=== PATIENT | male | born 1940 | race Caucasian/White ===

== ENCOUNTER 2016-08-24 16:06 | Inpatient (IN) | payer OTHER ==
[~2016-08-24] VITALS: Ht 165.1 cm; Wt 59.4 kg
[2016-08-24 16:10] VITALS: BP 146/95; PULSE 101; RESP 17; TEMP 97.9; O2SAT 97
--- NOTE | 2016-08-24 16:10 | NUR ---
Placed in room 04. Placed on property assessment monitor, blood pressure machine and pulse oximeter. To gown for exam. Side rails up. Report given to LEONEL Oleary.
--- NOTE | 2016-08-24 16:12 | NUR ---
On continous quality assurance monitor chassis
[2016-08-24] MEDS ORDERED: ASPIRIN 81 MG TAB.CHEW PO ONE (16:15)
--- NOTE | 2016-08-24 16:21 | NUR ---
Patient alert and oriented x4. States has had mid chest pain for 2 days, was sharp to begin but sharpness has lessened as of today, states does not radiate. Denies shortness of breath, nausea or vomiting. States pain even exists at rest. Denies dizziness/feeling faint at this time. No other complaints/injuries per patient or noted.
--- NOTE | 2016-08-24 16:22 | NUR ---
Dr. Wagner at bedside.
[2016-08-24 16:26] LABS: HEMATOCRIT 45.9 % (36-54); HEMOGLOBIN 15.8 g/dL (14.0-18.0); MEAN CORPUSCULAR HEMOGLOBIN 31 pg (27-31); MEAN CORPUSCULAR HGB CONC 34 % (32-36); MEAN CORPUSCULAR VOLUME 89 fL (79.0-98.0); PLATELET COUNT (AUTO) 218 K/uL (130-430); RED BLOOD CELL COUNT(AUTO) 5.15 MIL/uL (4.2-6.2); RED CELL DISTRIBUTION WIDTH 12.9 % (9.0-15.0); WHITE BLOOD COUNT (AUTO) 8.5 K/uL (4.8-10.8)
[2016-08-24 16:43] LABS: ANION GAP 7 (5-15); CHLORIDE 101 mmol/L (98-107); CREATININE 1.43 mg/dL (0.55-1.30); GLUCOSE 160 mg/dL (70-99); POTASSIUM 3.1 mmol/L (3.5-5.1); SODIUM SERUM 135 mmol/L (136-145); UREA NITROGEN, BLOOD 22 mg/dL (8-21)
[2016-08-24 16:47] LABS: INR 1.2 (0.80-1.20); PROTHROMBIN TIME 13.6 SECS (9.5-12.5)
[2016-08-24 16:50] LABS: ALANINE AMINOTRANSFERASE 42 U/L (12-78); ALBUMIN 3.6 g/dL (3.4-4.8); CREATINE KINASE, TOTAL 101 U/L (39-308); TOTAL BILIRUBIN 1.7 mg/dL (0.0-1.0)
[2016-08-24 17:00] LABS: ATYPICAL LYMPHOCYTES % 0 % (0-0); BAND % (MANUAL) 0 % (0-6); BASOPHILS % (MANUAL) 0 % (0-2); EOSINOPHILS % (MANUAL) 12 % (0-7); LYMPHOCYTES % (MANUAL) 20 % (20-46); MONOCYTES % (MANUAL) 5 % (0-11)
[2016-08-24] MEDS ORDERED: OMEG300C3 PO (17:01)
[2016-08-24] MEDS ORDERED: WARF3TAB PO (17:01)
[2016-08-24] MEDS ORDERED: CYAN100T PO (17:01)
[2016-08-24] MEDS ORDERED: VITA1CAP PO (17:01)
--- NOTE | 2016-08-24 17:01 | NUR ---
Medication reconciliation completed with information provided by - verbal list from patient. Any prior medication reconciliation on file was reviewed and corrected.
[2016-08-24 17:03] LABS: ASPARTATE AMINOTRANSFERASE 64 U/L (10-37)
--- NOTE | 2016-08-24 17:15 | NUR ---
No chest pain, pressure or radiating pain per patient.
--- NOTE | 2016-08-24 18:30 | NUR ---
No chest pain, pressure or radiating pain per patient.
--- NOTE | 2016-08-24 18:55 | NUR ---
Patient will be admitted to care of Dr Dickerson. Admitted to tele unit. Will go to admit room. Summary report printed. Report given to Nettie CASTANEDA at bedside.
--- NOTE | 2016-08-24 18:59 | NUR ---
ADMISSION NOTE Received patient from ER via jennyfer, received report from LEONEL Oleary. Patient admitted with diagnosis of ELEVATED TROPONIN. Patient oriented to hospital routine, call light, toileting and safety-patient verbalized understanding.
[2016-08-24] MEDS ORDERED: *LOVENOX 1MG/KG Q12H/PHARMACY XX ONE (19:00)
[2016-08-24] MEDS ORDERED: ONDANSETRON HCL 4 MG/2 ML VIAL IVP PRN (19:00)
[2016-08-24] MEDS ORDERED: ALBUTEROL SULFATE 0.083% 2.5 MG/3 ML VIAL.NEB INH PRN (19:00)
[2016-08-24] MEDS ORDERED: NITROGLYCERIN 0.4 MG TAB.SUBL SL ONE (19:00)
[2016-08-24 19:03] VITALS: BP 148/113; PULSE 83; RESP 20; TEMP 97.5; O2SAT 97
--- NOTE | 2016-08-24 19:20 | NUR ---
INITIAL NOTE PT. RECEIVED AAOX4, NO S/S OF SOB OR DISTRESS NOTED. VSS. IV ACCESS NOTED TO LEFT AV, SALINE LOCK. NO REDNESS OR SWELLING TO THE SITE. PT. ABLE TO AMBULATE WITH STEADY GAIT, REFUSES TO HAVE BED ALARM ON. ENCOURAGED TO CALL FOR ASSISTANCE. WILL DO FREQUENT ROUNDING TO ENSURE SAFETY. FAMILY AT THE BEDSIDE. PLAN OF CARE DISCUSSED, VERBALIZES UNDERSTANDING. WILL CONTINUE TO MONITOR FOR ANY CHANGES. SAFETY AND FALL PRECAUTIONS IN PLACE, CALL LIGHT IN REACH.
[2016-08-24] MEDS ORDERED: WARFARIN SODIUM 3 MG TABLET PO ONE (19:30)
[2016-08-24] MEDS: ENOXAPARIN SODIUM 60 MG/0.6 ML SYRINGE SUBCUT SCH (21:24)
--- NOTE | 2016-08-24 22:00 | NUR ---
ROUNDS PT. RESTING IN BED, NO S/S OF SOB OR DISTRESS. PT. DENIES PAIN AT THIS TIME. ENCOURAGED TO CALL FOR ASSISTANCE. VERBALIZES UNDERSTANDING. WILL CONTINUE TO MONITOR. SAFETY AND FALL PRECAUTIONS IN PLACE. CALL LIGHT IN REACH.
[2016-08-25] VITALS (8 sets, daily range): BP systolic 82–159; BP diastolic 18–90; PULSE 71–83; RESP 10–20; TEMP 82–97.7; O2SAT 94–100
--- NOTE | 2016-08-25 00:03 | NUR ---
ROUNDS PT. RESTING QUIETLY IN BED AT THIS TIME. NO S/S OF SOB OR DISTRESS. WILL CONTINUE TO MONITOR. CALL LIGHT IN REACH, BED IN LOWEST LOCKED POSITION.
--- NOTE | 2016-08-25 01:02 | NUR ---
PAGED: I PAGED DR. SALGADO @ [id number] I SPOKE WITH MARTHA LANGSTON I PAGED SECOND TIME @ 0121 I SPOKE WITH TOYA SALGADO CALLED BACK @ 0123 NUMBER I CALLED [phone]
[2016-08-25] MEDS ORDERED: WARFARIN SODIUM 2 MG TABLET PO ONE (01:15)
--- NOTE | 2016-08-25 01:24 | NUR ---
MD CALL DR. SALGADO CALLED AND NOTIFIED OF ELEVATED TROPONIN, NO ORDERS GIVEN.
[2016-08-25] MEDS: METOPROLOL TARTRATE 25 MG TABLET PO SCH ×3 (01:34→20:20)
--- NOTE | 2016-08-25 01:44 | NUR ---
CONSULT FOLLOW UP: I CALLED TO FOLLOW UP CONSULT WITH DR. CISNEROS I SPOKE WITH AYLIN CANNED FOOD RECONDITIONING INSPECTOR # 22 KATIE CONFIRMED THAT ER DID CALL
--- NOTE | 2016-08-25 02:10 | NUR ---
ROUNDS PT. RESTING IN BED WITH EYES CLOSED. CHEST RISE AND FALL NOTED. NO S/S OF SOB OR DISTRESS. WILL CONTINUE TO MONITOR FOR CHANGES. SAFETY AND FALL PRECAUTIONS IN PLACE. CALL LIGHT IN REACH.
--- NOTE | 2016-08-25 06:57 | NUR ---
CLOSING NOTE PT. RESTING IN BED. NO S/S OF SOB OR DISTRESS. ALL NECESSARY NEEDS WERE MET. SAFETY AND FALL PRECAUTIONS WERE MAINTAINED. WILL ENDORSE CARE TO AM NURSE. CALL LIGHT IN REACH.
[2016-08-25 07:10] LABS: BASOPHILS % (AUTO) 0.3 % (0.0-2.0); EOSINOPHILS # (AUTO) 1.2 K/uL (0.0-0.4); HEMATOCRIT 44.6 % (36-54); HEMOGLOBIN 15.1 g/dL (14.0-18.0); LYMPHOCYTES # (AUTO) 1.8 K/uL (1.0-5.5); LYMPHOCYTES % (AUTO) 21.5 % (20.5-51.5); MEAN CORPUSCULAR HEMOGLOBIN 31 pg (27-31); MEAN CORPUSCULAR HGB CONC 34 % (32-36); MEAN CORPUSCULAR VOLUME 91 fL (79.0-98.0); MONOCYTES # (AUTO) 0.9 K/uL (0.0-1.0); MONOCYTES % (AUTO) 10.6 % (1.7-9.3); NEUTROPHILS # (AUTO) 4.4 K/uL (1.8-7.7); NEUTROPHILS % (AUTO) 52.6 % (40.0-70.0); PLATELET COUNT (AUTO) 193 K/uL (130-430); RED BLOOD CELL COUNT(AUTO) 4.92 MIL/uL (4.2-6.2); WHITE BLOOD COUNT (AUTO) 8.3 K/uL (4.8-10.8)
--- NOTE | 2016-08-25 07:20 | NUR ---
AM ROUNDS Pt A/O x4, lao speaking...Pt 08/29 non-radiating chest pain..pt states this is the pain that brought him to the emergency room..Pt denies sob, pain does not radiate..Pt refused pain medication at this time...Pain is substernal...HL to LAC flushes well...Plan of care discussed with pt..Call light w/in reach...Will cont to monitor
[2016-08-25 07:34] LABS: ALANINE AMINOTRANSFERASE 38 U/L (12-78); ALBUMIN 3.3 g/dL (3.4-4.8); ANION GAP 6 (5-15); CALCIUM 8.3 mg/dL (8.4-11.0); CHLORIDE 102 mmol/L (98-107); CREATININE 1.33 mg/dL (0.55-1.30); GLUCOSE 123 mg/dL (70-99); POTASSIUM 3.2 mmol/L (3.5-5.1); SODIUM SERUM 136 mmol/L (136-145); TOTAL BILIRUBIN 1.2 mg/dL (0.0-1.0); TOTAL PROTEIN, SERUM 7.4 g/dL (6.4-8.3); UREA NITROGEN, BLOOD 23 mg/dL (8-21)
[2016-08-25 07:46] LABS: INR 1.2 (0.80-1.20); PROTHROMBIN TIME 13.3 SECS (9.5-12.5)
[2016-08-25] MEDS ORDERED: METOPROLOL TARTRATE 25 MG TABLET PO ONE (08:30)
[2016-08-25] MEDS ORDERED: ASPIRIN 81 MG TAB.CHEW PO SCH (09:00)
[2016-08-25 09:12] LABS: ASPARTATE AMINOTRANSFERASE 44 U/L (10-37)
--- NOTE | 2016-08-25 09:16 | NUR ---
TUMOR REGISTRAR AT BEDSIDE COMPLETING TEST
[2016-08-25] MEDS: ENOXAPARIN SODIUM 60 MG/0.6 ML SYRINGE SUBCUT SCH ×2 (10:34→20:21)
--- NOTE | 2016-08-25 10:54 | NUR ---
PT STABLE...DENIES CHEST PAIN AT THIS TIME WILL CONT TO MONITOR
--- NOTE | 2016-08-25 14:53 | NUR ---
ROUNDS PT REMAINS STABLE...NO CHANGES...LYING IN BED READING A BOOK...WILL CONT TO MONITOR
--- NOTE | 2016-08-25 16:39 | NUR ---
transfer SW Vivienne regarding patient's transfer to [facility] for angio in am. 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 procedure at 10 am
--- NOTE | 2016-08-25 16:40 | NUR ---
BOTH Shadia RAHMAN AND JACOBO AT BEDSIDE
[2016-08-25] MEDS ORDERED: WARFARIN SODIUM 3 MG TABLET PO SCH (18:00)
--- NOTE | 2016-08-25 18:13 | NUR ---
JOE FROM HCP CALLED WITH TRANSPORTATION INFORMATION TRANSPORT: [facility]...ETA 0800 TOMORROW MORNING 08/26/16 [facility] NUMBER# [phone] ANY PROBLEMS CALL HCP CLOCK ASSEMBLER @ [phone]
--- NOTE | 2016-08-25 18:37 | NUR ---
PT AWARE OF PLAN FOR TOMORROW INFORMED OF NPO STATUS AFTER MIDNIGHT, TRANSPORT BRANCH OFFICER TIME, AND SCHEDULED PROCEDURE TIME AT [facility]
--- NOTE | 2016-08-25 19:50 | NUR ---
PM SHIFT ASSESSMENT Received patient sitting up in bed, aox4, denies any pain at this time, vital signs stable. POC discussed with patient and daughter at bedside. Both verbalized understanding, compliant. Oriented to use call light for nurse assistance, educated on fall and safety measures. Safety measures in place, will continue to monitor.
--- NOTE | 2016-08-25 21:00 | NUR ---
RN ROUNDS Patient awake, c/o of slight pain to epigastric area, due medications administered. Zofran 4 mg IVP for nausea. Patient denies any vomiting. Will reassess patient shortly.
--- NOTE | 2016-08-25 22:14 | NUR ---
RN ROUNDS Patient awake, watching tv, denies any pain or discomfort at this time. Safety measures in place, call light within reach, will monitor.
--- NOTE | 2016-08-25 22:26 | NUR ---
MD CAMILO CALLED [facility] AT SPOKE WITH DR.REZVANI HICKS FARHAD LINING CLEANER.
[2016-08-25] MEDS ORDERED: ACETAMINOPHEN 325 MG TABLET PO PRN (22:45)
[2016-08-25] MEDS ORDERED: ACETAMINOPHEN 325 MG TABLET ONE (22:54)
--- NOTE | 2016-08-25 23:08 | NUR ---
RN ROUNDS/ Patient c/o of headache, paged Dr. Dickerson, Spoke to Dr. Vila, updated him on patient;s status, ordered Tylenol 650 mg po for pain, patient given one dose of Tylenol. Will reassess patient shortly. Helped with bed bath, linens and gowns changed.
--- NOTE | 2016-08-26 00:09 | NUR ---
RN ROUNDS Patient resting quietly in bed, vital signs stable. 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
[2016-08-26 00:58] VITALS: BP 118/70; PULSE 72; RESP 18; TEMP 97.5; O2SAT 100
--- NOTE | 2016-08-26 02:01 | NUR ---
RN ROUNDS Patient asleep, respirations even and unlabored, safety measures in place, call light remains within reach, will continue to monitor.
--- NOTE | 2016-08-26 04:16 | NUR ---
RN ROUNDS Patient continues to sleep, respirations even and unlabored, safety measures in place, call light remains within reach, will continue to monitor.
[2016-08-26 05:27] VITALS: BP 118/70; PULSE 72; RESP 18; TEMP 97.5; O2SAT 100
--- NOTE | 2016-08-26 06:11 | NUR ---
RN ROUNDS/REPORT Patient resting quietly, vitals stable. Denies any pain or discomfort. Remains NPO. IV line intact and patent, no signs of infiltration noted. Report given to Gordo from [facility], patient will go to [facility] south room 260 bed 1. Will endorse to day nurse.
--- NOTE | 2016-08-26 07:42 | NUR ---
Nutrition Update Tigre Scale 18 noted. Pt admitted for chest pain elevated troponin. Diet: 2 gm Na (08/25/16 Breakfast) and NPO (08/26/16 Breakfast) BMI: 21.8 kg/m2 RD to follow per nutrition care standards.
[2016-08-26 08:00] VITALS: BP 140/93; PULSE 80; RESP 19; TEMP 96.2; O2SAT 98
--- NOTE | 2016-08-26 08:20 | NUR ---
OPENING NOTE RECEIVED REPORT FROM NIGHT NURSE, PATIENT IS RESTING IN BED COMFORTABLY WITH NO COMPLAINTS OF PAIN, NO NOTED DISTRESS, DISCOMFORT OR SOB. PATIENT IS ALERT AND ORIENTED AND ABLE TO COMMUNICATE NEEDS TO STAFF. PATIENT IS AMBULATORY. PATIENT WILL BE TRANSFERRED TO [facility] FOR AN ANGIO, SO CHARTER AND TOUR BUS DRIVER CALLED REPORT AND SPOKE TO LARRY IN [place] WHERE THE PATIENT WILL BE GOING AND THE PACKET WAS COMPLETED, THE DISCHARGE PAPERWORK WAS COMPLETED AND EDUCATION WAS GIVEN TO THE PATIENT, PATIENT VERBALIZED UNDERSTANDING AND THE TRANSFER PAPERWORK WAS SIGNED. EMT IS HERE TO DENTAL THERAPIST PATIENT AND HE LEFT IN STABLE CONDITION WITH NO COMPLICATIONS.
== END 2016-08-26 08:25 | disposition short-term general hospital (02) | DRG 281 ==
LOC: SED 16:06 → STU 18:50
DX: I21.4 Non-ST elevation (NSTEMI) myocardial infarction (principal); D68.69 Other thrombophilia; I20.0 Unstable angina; E78.2 Mixed hyperlipidemia; I10 Essential (primary) hypertension; E78.00 Pure hypercholesterolemia, unspecified; I45.10 Unspecified right bundle-branch block; Z86.718 Personal history of other venous thrombosis and embolism; Z86.73 Personal history of transient ischemic attack (TIA), and cerebral infarction without residual deficits; Z79.01 Long term (current) use of anticoagulants; Z79.899 Other long term (current) drug therapy; Z87.442 Personal history of urinary calculi
CPT/HCPCS: 36415; 71010; 80053; 80061; 82550-TC; 83880; 84484; 85007; 85025; 85027; 85610-TC; 85730-TC; 93005; 93306; 99285; J1650; J2405

== ENCOUNTER 2017-05-29 18:58 | Emergency (ER) | payer OTHER ==
[~2017-05-29] VITALS: Ht 167.6 cm; Wt 60.3 kg
[~2017-05-29 18:58] MED LIST: WARF3TAB PO
[2017-05-29 19:27] VITALS: BP_SYST 148
--- NOTE | 2017-05-29 19:40 | NUR ---
Patient to ER bed h[facility] for evaluation. Side rails up.
--- NOTE | 2017-05-29 20:00 | NUR ---
Pt in hwy with c/o left arm pain Dr Cazares aware.
--- NOTE | 2017-05-29 20:05 | NUR ---
ER at bedside examining patient.
--- NOTE | 2017-05-29 21:00 | NUR ---
Patient transported to radiology via for ultra sound.
--- NOTE | 2017-05-29 22:00 | NUR ---
Returned from radiology, back to [facility].
--- NOTE | 2017-05-29 22:53 | NUR ---
Patient given written and verbal discharge instructions and verbalizes understanding. ER MD discussed with patient the results and treatment provided. Patient in stable condition. ID arm band removed. Rx of motrin given. Patient educated on pain management and to follow up with PMD. Pain Scale 0/10. Opportunity for questions provided and answered.
[2017-05-29 22:56] VITALS: BP_SYST 157
== END 2017-05-29 22:56 | disposition home or self-care (01) ==
LOC: SED 18:58
DX: R25.2 Cramp and spasm (principal); I10 Essential (primary) hypertension; Z86.718 Personal history of other venous thrombosis and embolism; Z90.89 Acquired absence of other organs
CPT/HCPCS: 73090; 93971; 99284

== ENCOUNTER 2022-12-25 07:10 | Emergency (ER) | payer OTHER ==
[~2022-12-25] VITALS: Ht 165.1 cm; Wt 58.5 kg
[~2022-12-25 07:10] MED LIST changes: +CEPH-548 PO
--- NOTE | 2022-12-25 07:15 | NUR ---
Patient to ER bed 5 to gown for evaluation. Side rails up. Report given to LEONEL Gamino.
[2022-12-25 07:28] VITALS: BP_SYST 153; PULSE 86; RESP 23; TEMP 97.2; O2SAT 96
--- NOTE | 2022-12-25 08:00 | NUR ---
has evaluated patient. In room with 2 student nurses and [employer] instructor. Cruz catheter placed and patient indicates he is feeling much better at this time.
--- NOTE | 2022-12-25 08:14 | NUR ---
Patient given written and verbal discharge instructions and verbalizes understanding. ER MD discussed with patient the results and treatment provided. Patient in stable condition. ID arm band removed. Rx of max catheter given. Patient educated on pain management and to follow up with PMD/urologist for preset appointment. Advised patient to contact urologist tomorrow. Pain Scale 0/10 when leaving. Opportunity for questions provided and answered.
== END 2022-12-25 08:14 | disposition home or self-care (01) ==
LOC: SED 07:10
DX: Z46.6 Encounter for fitting and adjustment of urinary device (principal); R33.9 Retention of urine, unspecified; R10.30 Lower abdominal pain, unspecified; Z79.899 Other long term (current) drug therapy
CPT/HCPCS: 99284

== ENCOUNTER 2023-03-09 18:02 | Emergency (ER) | payer OTHER ==
[~2023-03-09] VITALS: Ht 165.1 cm; Wt 59.0 kg
[~2023-03-09 18:02] MED LIST changes: +ASC500 PO; -CEPH-548 PO; +LEVO250T73 PO; +Nitrofurantoin Monohyd/M-Cryst PO
[2023-03-09 18:48] VITALS: BP_SYST 122; PULSE 96; RESP 18; TEMP 98.6; O2SAT 97
[2023-03-09 19:34] LABS: BASOPHILS # (AUTO) 0.1 K/uL (0.0-0.2); BASOPHILS % (AUTO) 0.6 % (0.0-2.0); EOSINOPHILS # (AUTO) 0.3 K/uL (0.0-0.4); EOSINOPHILS % (AUTO) 2.3 % (0.0-4.0); HEMATOCRIT 40.2 % (36-54); HEMOGLOBIN 13.5 g/dL (14.0-18.0); LYMPHOCYTES # (AUTO) 0.4 K/uL (1.0-5.5); LYMPHOCYTES % (AUTO) 3.3 % (20.5-51.5); MEAN CORPUSCULAR HEMOGLOBIN 31 pg (27-31); MEAN CORPUSCULAR HGB CONC 34 % (32-36); MEAN CORPUSCULAR VOLUME 93 fL (79.0-98.0); MONOCYTES # (AUTO) 0.5 K/uL (0.0-1.0); MONOCYTES % (AUTO) 4.3 % (1.7-9.3); NEUTROPHILS # (AUTO) 11.2 K/uL (1.8-7.7); NEUTROPHILS % (AUTO) 89.5 % (40.0-70.0); PLATELET COUNT (AUTO) 244 K/uL (130-430); RED BLOOD CELL COUNT(AUTO) 4.33 MIL/uL (4.2-6.2); RED CELL DISTRIBUTION WIDTH 14.8 % (9.0-15.0); WHITE BLOOD COUNT (AUTO) 12.5 K/uL (4.8-10.8)
[2023-03-09 19:48] LABS: ALANINE AMINOTRANSFERASE 27 U/L (12-78); ALBUMIN 3.4 g/dL (3.4-4.8); ANION GAP 6 (5-15); ASPARTATE AMINOTRANSFERASE 23 U/L (10-37); CALCIUM 8.9 mg/dL (8.4-11.0); CARBON DIOXIDE 28 mmol/L (23-29); CHLORIDE 98 mmol/L (98-107); CREATINE KINASE, TOTAL 27 U/L (39-308); CREATININE 2.44 mg/dL (0.55-1.30); GLUCOSE 127 mg/dL (74-106); POTASSIUM 4.1 mmol/L (3.5-5.1); SODIUM SERUM 132 mmol/L (136-145); TOTAL BILIRUBIN 2.1 mg/dL (0.0-1.0); TOTAL PROTEIN, SERUM 8.3 g/dL (6.4-8.3); UREA NITROGEN, BLOOD 35 mg/dL (8-21)
[2023-03-09 20:40] LABS: BILIRUBIN,URINE 1+ (NEGATIVE); BLOOD, URINE 3+ (NEGATIVE); CLARITY/URINE TURBID (CLEAR); COLOR,URINE YELLOW (YELLOW); GLUCOSE,URINE NEGATIVE (NEGATIVE); KETONES,URINE TRACE (NEGATIVE); LEUKOCYTE ESTERASE ,URINE 3+ (NEGATIVE); NITRITE, URINE POSITIVE (NEGATIVE); PROTEIN URINE 3+ (NEGATIVE); UROBILINOGEN,URINE 0.2 (0.2-1.0)
[2023-03-09 20:57] LABS: BACTERIA,URINE MODERATE /HPF (None Seen); RBC,URINE 50-80 /HPF (0-3)
[2023-03-09] MEDS ORDERED: cefTRIAXone 1 GM in LIDOCAINE 1%, 20 ML MDV 2.1 ML IM ONE (21:00)
[2023-03-09] MEDS ORDERED: CIPR250T4 PO (21:24)
[2023-03-09] MEDS ORDERED: DOCU-144 PO (21:30)
[2023-03-09 21:52] VITALS: BP_SYST 106; PULSE 96; RESP 20; TEMP 97.7; O2SAT 96
== END 2023-03-09 21:52 | disposition home or self-care (01) ==
LOC: SED 18:02
DX: N39.0 Urinary tract infection, site not specified (principal); M54.50 Low back pain, unspecified; I10 Essential (primary) hypertension; Z79.899 Other long term (current) drug therapy
CPT/HCPCS: 99285; 71045; 80053; 81000; 81001; 82550; 85025; 87040; 87086; 87186; 36415; 93005; 74018; 83605; 51702; 96372; 81015; J0696; J2001

== ENCOUNTER 2023-08-04 20:02 | Inpatient (IN) | payer OTHER ==
[~2023-08-04] VITALS: Ht 165.1 cm; Wt 50.3 kg
[~2023-08-04 20:02] MED LIST changes: +CIPR250T4 PO; +DOCU-144 PO
[2023-08-04 20:12] VITALS: BP_SYST 110; PULSE 114; RESP 16; TEMP 101.1; O2SAT 96
[2023-08-04 20:36] LABS: BILIRUBIN,URINE NEGATIVE (NEGATIVE); BLOOD, URINE 3+ (NEGATIVE); CLARITY/URINE SL CLOUDY (CLEAR); COLOR,URINE YELLOW (YELLOW); GLUCOSE,URINE NEGATIVE (NEGATIVE); KETONES,URINE NEGATIVE (NEGATIVE); LEUKOCYTE ESTERASE ,URINE 2+ (NEGATIVE); NITRITE, URINE NEGATIVE (NEGATIVE); PROTEIN URINE 2+ (NEGATIVE); UROBILINOGEN,URINE 0.2 (0.2-1.0)
[2023-08-04] MEDS: NACL 0.9% 1,000 ML IV ONE (20:39)
[2023-08-04 20:42] LABS: BACTERIA,URINE MANY /HPF (None Seen); RBC,URINE 20-50 /HPF (0-3); WBC,URINE 80-100 /HPF (0-3)
[2023-08-04 20:43] LABS: MUCUS,URINE None Seen /LPF (None Seen)
[2023-08-04 20:46] LABS: BASOPHILS % (AUTO) 0.3 % (0.0-2.0); EOSINOPHILS % (AUTO) 0.4 % (0.0-4.0); HEMATOCRIT 41.7 % (36-54); HEMOGLOBIN 14.2 g/dL (14.0-18.0); LYMPHOCYTES # (AUTO) 0.7 K/uL (1.0-5.5); LYMPHOCYTES % (AUTO) 6.9 % (20.5-51.5); MEAN CORPUSCULAR HEMOGLOBIN 31 pg (27-31); MEAN CORPUSCULAR HGB CONC 34 % (32-36); MEAN CORPUSCULAR VOLUME 90 fL (79.0-98.0); MONOCYTES % (AUTO) 9.1 % (1.7-9.3); NEUTROPHILS # (AUTO) 8.9 K/uL (1.8-7.7); NEUTROPHILS % (AUTO) 83.3 % (40.0-70.0); PLATELET COUNT (AUTO) 200 K/uL (130-430); RED BLOOD CELL COUNT(AUTO) 4.65 MIL/uL (4.2-6.2); WHITE BLOOD COUNT (AUTO) 10.7 K/uL (4.8-10.8)
[2023-08-04 20:53] LABS: ANION GAP 11 (5-15); CALCIUM 8.7 mg/dL (8.4-11.0); CARBON DIOXIDE 25 mmol/L (23-29); CHLORIDE 96 mmol/L (98-107); CREATININE 2.19 mg/dL (0.55-1.30); GLUCOSE 117 mg/dL (74-106); POTASSIUM 3.8 mmol/L (3.5-5.1); SODIUM SERUM 132 mmol/L (136-145); UREA NITROGEN, BLOOD 41 mg/dL (8-21)
[2023-08-04] MEDS: ACETAMINOPHEN 500 MG TABLET PO ONE (21:00)
[2023-08-04] MEDS: KETOROLAC TROMETHAMINE 30 MG VIAL IVP ONE (21:00)
[2023-08-04 21:01] LABS: ALANINE AMINOTRANSFERASE 17 U/L (12-78); ALBUMIN 3.2 g/dL (3.4-4.8); ASPARTATE AMINOTRANSFERASE 23 U/L (10-37); BILIRUBIN,DIRECT 0.3 mg/dL (0.0-0.3); TOTAL BILIRUBIN 2.2 mg/dL (0.0-1.0); TOTAL PROTEIN, SERUM 8.6 g/dL (6.4-8.3)
[2023-08-04 21:21] LABS: INR > 9.0 (0.80-1.20); PROTHROMBIN TIME 88.7 SECS (9.5-12.5)
[2023-08-04] MEDS ORDERED: cefTRIAXone 1 GM VIAL ONE (21:53)
[2023-08-04] MEDS: cefTRIAXone 1 GM in D5W 50 ML IV ONE (21:55)
[2023-08-04] MEDS: PHYTONADIONE 10 MG/ML AMP IM ONE (22:23)
[2023-08-04] MEDS: PHYTONADIONE Non-Formulary 5 MG TABLET PO ONE (22:23)
[2023-08-04] MEDS ORDERED: HYDROcodone/ACETAMIN 5-325 MG TAB (NORCO/ VICODIN) PO PRN (22:45)
[2023-08-04] MEDS ORDERED: TAMS-11 PO (22:57)
[2023-08-04] MEDS ORDERED: CIPR250T4 PO (22:58)
[2023-08-04] MEDS ORDERED: AMLO5TAB4 PO (22:58)
[2023-08-04] MEDS ORDERED: WARF-66 PO (22:58)
[2023-08-04] MEDS ORDERED: METO200T37 PO (22:58)
[2023-08-05] VITALS (8 sets, daily range): BP systolic 110–126; PULSE 75–85; RESP 16–19; TEMP 97.6–99.3; O2SAT 96–98
[2023-08-05] MEDS ORDERED: MORPHINE 2 MG/ML INJ. SYRINGE IVP PRN (01:00)
[2023-08-05] MEDS ORDERED: NALOXONE HCL 0.4 MG/ML AMP (NARCAN) IVP PRN (01:00)
[2023-08-05] MEDS ORDERED: ONDANSETRON HCL 4 MG/2 ML VIAL IVP PRN (01:00)
[2023-08-05] MEDS: cefTRIAXone 1 GM in D5W 50 ML IV SCH ×2 (01:00→21:20)
[2023-08-05] MEDS ORDERED: ACETAMINOPHEN 325 MG TABLET PO PRN (01:00)
[2023-08-05] MEDS ORDERED: HYDROcodone/ACETAMIN 10-325 MG TAB PO PRN (01:00)
[2023-08-05 05:30] LABS: BASOPHILS % (AUTO) 0.4 % (0.0-2.0); EOSINOPHILS # (AUTO) 0.6 K/uL (0.0-0.4); EOSINOPHILS % (AUTO) 7.3 % (0.0-4.0); HEMOGLOBIN 12.3 g/dL (14.0-18.0); LYMPHOCYTES # (AUTO) 1.1 K/uL (1.0-5.5); MEAN CORPUSCULAR HEMOGLOBIN 31 pg (27-31); MEAN CORPUSCULAR HGB CONC 34 % (32-36); MEAN CORPUSCULAR VOLUME 90 fL (79.0-98.0); MONOCYTES # (AUTO) 1.1 K/uL (0.0-1.0); MONOCYTES % (AUTO) 12.4 % (1.7-9.3); NEUTROPHILS % (AUTO) 67.9 % (40.0-70.0); PLATELET COUNT (AUTO) 177 K/uL (130-430); RED BLOOD CELL COUNT(AUTO) 3.98 MIL/uL (4.2-6.2); WHITE BLOOD COUNT (AUTO) 8.8 K/uL (4.8-10.8)
[2023-08-05] MEDS: NACL 0.9% 1,000 ML IV ONE (05:42)
[2023-08-05 06:14] LABS: ALANINE AMINOTRANSFERASE 15 U/L (12-78); ALBUMIN 2.5 g/dL (3.4-4.8); ANION GAP 8 (5-15); ASPARTATE AMINOTRANSFERASE 20 U/L (10-37); CALCIUM 8.1 mg/dL (8.4-11.0); CARBON DIOXIDE 25 mmol/L (23-29); CHLORIDE 103 mmol/L (98-107); CREATININE 2.06 mg/dL (0.55-1.30); GLUCOSE 105 mg/dL (74-106); POTASSIUM 3.7 mmol/L (3.5-5.1); SODIUM SERUM 136 mmol/L (136-145); TOTAL BILIRUBIN 1.6 mg/dL (0.0-1.0); TOTAL PROTEIN, SERUM 7.1 g/dL (6.4-8.3); UREA NITROGEN, BLOOD 39 mg/dL (8-21)
[2023-08-05 06:22] LABS: INR 8.7 (0.80-1.20)
[2023-08-05] MEDS: LIDOCAINE PATCH 5% 1 EA TP SCH (09:00)
[2023-08-05] MEDS ORDERED: NON-FORMULARY MEDICATION (Metoprolol Succinate 1 TAB) PO SCH (09:00)
[2023-08-05] MEDS: TAMSULOSIN HCL 0.4 MG CAP PO SCH (09:20)
[2023-08-05] MEDS: METOPROLOL SUCCINATE 50 MG TAB.SR.24H (TOPROL XL) PO SCH (09:21)
[2023-08-05] MEDS: amLODIPine BESYLATE 5 MG TABLET PO SCH (09:22)
[2023-08-05] MEDS: PHYTONADIONE 10 MG/ML AMP IM ONE (09:22)
[2023-08-05] MEDS: ASCORBIC ACID 500 MG TABLET PO SCH (09:22)
[2023-08-05] MEDS: DOCUSATE SODIUM 100 MG CAPSULE PO SCH (09:23)
[2023-08-06] VITALS: BP_SYST 128; PULSE 77; RESP 17; TEMP 96.7; O2SAT 96
[2023-08-06 06:32] LABS: BASOPHILS % (AUTO) 0.4 % (0.0-2.0); EOSINOPHILS # (AUTO) 1.9 K/uL (0.0-0.4); EOSINOPHILS % (AUTO) 22.1 % (0.0-4.0); HEMATOCRIT 35.9 % (36-54); HEMOGLOBIN 12.2 g/dL (14.0-18.0); LYMPHOCYTES # (AUTO) 0.9 K/uL (1.0-5.5); LYMPHOCYTES % (AUTO) 10.3 % (20.5-51.5); MEAN CORPUSCULAR HEMOGLOBIN 31 pg (27-31); MEAN CORPUSCULAR HGB CONC 34 % (32-36); MEAN CORPUSCULAR VOLUME 91 fL (79.0-98.0); MONOCYTES # (AUTO) 1.1 K/uL (0.0-1.0); MONOCYTES % (AUTO) 12.1 % (1.7-9.3); NEUTROPHILS # (AUTO) 4.8 K/uL (1.8-7.7); NEUTROPHILS % (AUTO) 55.1 % (40.0-70.0); PLATELET COUNT (AUTO) 173 K/uL (130-430); RED BLOOD CELL COUNT(AUTO) 3.96 MIL/uL (4.2-6.2); RED CELL DISTRIBUTION WIDTH 14.1 % (9.0-15.0); WHITE BLOOD COUNT (AUTO) 8.7 K/uL (4.8-10.8)
[2023-08-06 06:37] LABS: ANION GAP 9 (5-15); CALCIUM 8.2 mg/dL (8.4-11.0); CARBON DIOXIDE 23 mmol/L (23-29); CHLORIDE 103 mmol/L (98-107); GLUCOSE 99 mg/dL (74-106); PHOSPHORUS 2.9 mg/dL (2.7-4.5); POTASSIUM 3.9 mmol/L (3.5-5.1); SODIUM SERUM 135 mmol/L (136-145); UREA NITROGEN, BLOOD 39 mg/dL (8-21)
[2023-08-06 07:24] LABS: ERYTHROCYTE SEDIMENTATION RATE 56 MM/HR (0-15)
[2023-08-06 08:35] VITALS: BP_SYST 128; PULSE 88; RESP 16; TEMP 98.7; O2SAT 97
[2023-08-06 11:35] VITALS: BP_SYST 117; PULSE 80; RESP 18; TEMP 98; O2SAT 96
[2023-08-06] MEDS: PHYTONADIONE 10 MG/ML AMP IM ONE (13:13)
[2023-08-06 16:40] VITALS: BP_SYST 109; PULSE 78; RESP 17; TEMP 98.8; O2SAT 97
[2023-08-06 20:04] VITALS: BP_SYST 118; PULSE 83; RESP 18; TEMP 98.2; O2SAT 97
[2023-08-07] VITALS (7 sets, daily range): BP systolic 104–128; PULSE 66–80; RESP 16–20; TEMP 96.8–98.6; O2SAT 95–99
[2023-08-07 04:42] LABS: ERYTHROCYTE SEDIMENTATION RATE 30 MM/HR (0-15)
[2023-08-07 04:52] LABS: BASOPHILS # (AUTO) 0.1 K/uL (0.0-0.2); BASOPHILS % (AUTO) 0.7 % (0.0-2.0); EOSINOPHILS # (AUTO) 2.2 K/uL (0.0-0.4); EOSINOPHILS % (AUTO) 25.3 % (0.0-4.0); HEMATOCRIT 34.5 % (36-54); HEMOGLOBIN 11.8 g/dL (14.0-18.0); LYMPHOCYTES # (AUTO) 1.1 K/uL (1.0-5.5); LYMPHOCYTES % (AUTO) 12.5 % (20.5-51.5); MEAN CORPUSCULAR HEMOGLOBIN 31 pg (27-31); MEAN CORPUSCULAR HGB CONC 34 % (32-36); MEAN CORPUSCULAR VOLUME 91 fL (79.0-98.0); MONOCYTES % (AUTO) 11.6 % (1.7-9.3); NEUTROPHILS # (AUTO) 4.4 K/uL (1.8-7.7); NEUTROPHILS % (AUTO) 49.9 % (40.0-70.0); PLATELET COUNT (AUTO) 191 K/uL (130-430); RED BLOOD CELL COUNT(AUTO) 3.78 MIL/uL (4.2-6.2); RED CELL DISTRIBUTION WIDTH 14.1 % (9.0-15.0); WHITE BLOOD COUNT (AUTO) 8.9 K/uL (4.8-10.8)
[2023-08-07 05:13] LABS: ALANINE AMINOTRANSFERASE 13 U/L (12-78); ALBUMIN 2.5 g/dL (3.4-4.8); ANION GAP 10 (5-15); ASPARTATE AMINOTRANSFERASE 16 U/L (10-37); CALCIUM 8.4 mg/dL (8.4-11.0); CARBON DIOXIDE 25 mmol/L (23-29); CHLORIDE 101 mmol/L (98-107); CREATININE 1.81 mg/dL (0.55-1.30); GLUCOSE 119 mg/dL (74-106); PHOSPHORUS 3.4 mg/dL (2.7-4.5); SODIUM SERUM 136 mmol/L (136-145); TOTAL BILIRUBIN 0.5 mg/dL (0.0-1.0); UREA NITROGEN, BLOOD 48 mg/dL (8-21)
[2023-08-07] MEDS: fentaNYL CITRATE/PF 100 MCG/2 ML AMP ONE (18:46)
[2023-08-07] MEDS: ERTAPENEM SODIUM 0.5 GM in NS 50 ML IV SCH (21:30)
[2023-08-08 08:00] VITALS: BP_SYST 120; PULSE 92; RESP 16; TEMP 97.9; O2SAT 96
[2023-08-08 10:33] LABS: HEMATOCRIT 35.5 % (36-54); HEMOGLOBIN 12.1 g/dL (14.0-18.0); MEAN CORPUSCULAR HEMOGLOBIN 31 pg (27-31); MEAN CORPUSCULAR HGB CONC 34 % (32-36); MEAN CORPUSCULAR VOLUME 92 fL (79.0-98.0); PLATELET COUNT (AUTO) 200 K/uL (130-430); RED BLOOD CELL COUNT(AUTO) 3.88 MIL/uL (4.2-6.2); RED CELL DISTRIBUTION WIDTH 13.9 % (9.0-15.0); WHITE BLOOD COUNT (AUTO) 7.7 K/uL (4.8-10.8)
[2023-08-08 11:06] LABS: ALANINE AMINOTRANSFERASE 16 U/L (12-78); ALBUMIN 2.6 g/dL (3.4-4.8); ANION GAP 8 (5-15); ASPARTATE AMINOTRANSFERASE 21 U/L (10-37); CALCIUM 8.6 mg/dL (8.4-11.0); CARBON DIOXIDE 28 mmol/L (23-29); CHLORIDE 103 mmol/L (98-107); CREATININE 1.81 mg/dL (0.55-1.30); GLUCOSE 161 mg/dL (74-106); POTASSIUM 4.1 mmol/L (3.5-5.1); SODIUM SERUM 139 mmol/L (136-145); TOTAL BILIRUBIN 0.7 mg/dL (0.0-1.0); TOTAL PROTEIN, SERUM 7.3 g/dL (6.4-8.3); UREA NITROGEN, BLOOD 42 mg/dL (8-21)
[2023-08-08 11:23] LABS: BASOPHILS % (MANUAL) 0 % (0-2); EOSINOPHILS % (MANUAL) 30 % (0-7); LYMPHOCYTES % (MANUAL) 8 % (20-46); MONOCYTES % (MANUAL) 10 % (0-11); PLATELET ESTIMATE ADEQUATE (ADEQUATE)
[2023-08-08 12:00] VITALS: BP_SYST 116; PULSE 89; RESP 16; TEMP 98; O2SAT 99
[2023-08-08 12:15] LABS: INR 1.1 (0.80-1.20); PROTHROMBIN TIME 11.5 SECS (9.5-12.5)
[2023-08-08 16:00] VITALS: BP_SYST 124; PULSE 68; RESP 16; TEMP 97.7; O2SAT 99
[2023-08-08 18:17] LABS: BILIRUBIN,URINE NEGATIVE (NEGATIVE); CLARITY/URINE CLEAR (CLEAR); COLOR,URINE YELLOW (YELLOW); GLUCOSE,URINE NEGATIVE (NEGATIVE); KETONES,URINE NEGATIVE (NEGATIVE); LEUKOCYTE ESTERASE ,URINE 1+ (NEGATIVE); NITRITE, URINE POSITIVE (NEGATIVE); PH,URINE 6.5 (5.0-8.0); PROTEIN URINE TRACE (NEGATIVE); UROBILINOGEN,URINE 0.2 (0.2-1.0)
[2023-08-08 18:54] LABS: BLOOD, URINE TRACE (NEGATIVE)
[2023-08-08 19:00] VITALS: BP_SYST 124; PULSE 58; RESP 18; TEMP 97.5; O2SAT 96
[2023-08-08 19:56] LABS: BACTERIA,URINE FEW /HPF (None Seen); MUCUS,URINE 1+ /LPF (None Seen)
[2023-08-08 20:00] VITALS: BP_SYST 124; PULSE 58; RESP 18; TEMP 97.5; O2SAT 97
[2023-08-09 01:21] VITALS: BP_SYST 121; PULSE 72; RESP 18; TEMP 97.3; O2SAT 96
[2023-08-09 04:00] VITALS: RESP 18
[2023-08-09 08:00] VITALS: BP_SYST 114; PULSE 78; RESP 16; TEMP 98.8; O2SAT 98
[2023-08-09 11:46] LABS: INR 1.1 (0.80-1.20)
[2023-08-09 13:26] VITALS: BP_SYST 122; PULSE 68; RESP 18; TEMP 97.9; O2SAT 99
[2023-08-09] MEDS ORDERED: ERTA1VIA3 INJ (13:44)
[2023-08-09 17:13] VITALS: BP_SYST 128; PULSE 60; RESP 18; TEMP 97.6; O2SAT 97
[2023-08-09] MEDS: WARFARIN SODIUM 2 MG TABLET PO SCH (18:25)
[2023-08-09 19:34] VITALS: BP_SYST 105; PULSE 65; RESP 18; TEMP 97.3
[2023-08-10 08:06] LABS: % FREE PSA 20.2 % (.); FREE PSA 1.27 ng/mL; PROSTATE SPECIFIC AG TOTAL 6.3 ng/mL (0.0-4.0)
== END 2023-08-09 21:30 | disposition home health service (06) | DRG 917 ==
LOC: SED 20:02 → STU 22:37 → SMU 08-06 11:03
PROVIDERS: ADMIT Family Medicine; ATTEND Family Medicine
DX: T45.511A Poisoning by anticoagulants, accidental (unintentional), initial encounter (principal); N17.0 Acute kidney failure with tubular necrosis; D68.59 Other primary thrombophilia; E44.0 Moderate protein-calorie malnutrition; E87.1 Hypo-osmolality and hyponatremia; Z68.1 Body mass index [BMI] 19.9 or less, adult; R65.10 Systemic inflammatory response syndrome (SIRS) of non-infectious origin without acute organ dysfunction; N10 Acute pyelonephritis; D64.9 Anemia, unspecified; E88.09 Other disorders of plasma-protein metabolism, not elsewhere classified; E83.52 Hypercalcemia; I12.9 Hypertensive chronic kidney disease with stage 1 through stage 4 chronic kidney disease, or unspecified chronic kidney disease; N18.9 Chronic kidney disease, unspecified; I25.10 Atherosclerotic heart disease of native coronary artery without angina pectoris; M35.3 Polymyalgia rheumatica; N20.0 Calculus of kidney; N40.0 Benign prostatic hyperplasia without lower urinary tract symptoms; Z86.718 Personal history of other venous thrombosis and embolism; Z86.73 Personal history of transient ischemic attack (TIA), and cerebral infarction without residual deficits; Z86.79 Personal history of other diseases of the circulatory system; Z87.442 Personal history of urinary calculi; Z79.899 Other long term (current) drug therapy; Z79.01 Long term (current) use of anticoagulants; I10 Essential (primary) hypertension
CPT/HCPCS: 36415; 71045; 72100; 76770; 80048; 80053; 80076; 81000; 81001; 81015; 83605; 83735; 84100; 84153; 84484; 85007; 85025; 85027; 85610; 85651; 85730; 87040; 87086; 87186; 93005; 97112-GP; 97116-GP; 97530-GP; 99291; G0378; J0696; J1335; J1885; J3010; J3430; J7060